=== PATIENT | female | born 1980 | race Caucasian/White ===

== ENCOUNTER 2024-03-07 09:27 | Emergency (ER) | payer OTHER, SELFPAY ==
[2024-03-07] MEDS: ONDANSETRON ODT 4 MG TABRAP PO (09:50)
[2024-03-07] MEDS: ACETAMINOPHEN 500 MG TABLET 1000 MG PO (09:50)
[2024-03-07 10:02] VITALS: BP 152/86; PULSE 120; RESP 18; TEMP 37.9; O2SAT 96; BMI 38.4
--- NOTE | 2024-03-07 10:27 | XR_ITS ---
Examination: PA lateral chest 2 views TECHNIQUE: Upright PA lateral chest 2 views Exam date and time: March 07, 2024 1039 hours INDICATIONS: Coughing beginning 4 days ago. FINDINGS: Normal heart size The lungs are clear. The osseous structures are intact IMPRESSION: No active disease
--- NOTE | 2024-03-07 10:27 | PD.EDRME ---
Rapid Medical Screening Exam RME Arrival date/time: 03/07/24 09:27 43-year-old female with medical history significant for valley fever presents emergency department complains of generalized bodyaches, fever, lower back pain Chief Complaint: Flu Like Symptoms Time Seen by Provider: 03/07/24 09:29 Vital signs: Vital Signs Temperature 100.2 F 03/07/24 10:02 Pulse Rate 120 H 03/07/24 10:02 Respiratory Rate 18 03/07/24 10:02 Blood Pressure 152/86 H 03/07/24 10:02 Pulse Oximetry (%) 96 03/07/24 10:02 Oxygen Delivery Method Room Air 03/07/24 10:02
[2024-03-07 10:52] LABS: Basophils % (Auto) 1 % (0-2.5); Eosinophils % (Auto) 0 % (0-10); Hematocrit 43.7 % (36.0-46.0); Hemoglobin 14.9 g/dL (12.0-16.0); Immature Granulocytes % (Auto) 0 % (0-0); Immature Granulocytes Auto 0.01 Thou/mm3 (0.00-0.00); Lymphocytes # (Auto) 1.4 Thou/mm3 (1.0-4.8); Lymphocytes % (Auto) 32 % (10-50); Mean Corpuscular HGB Conc 34.1 g/dl (31.0-37.0); Mean Corpuscular Hemoglobin 29.9 pg (25.0-35.0); Mean Corpuscular Volume 88 fL (80-100); Monocytes # (Auto) 0.4 Thou/mm3 (0.0-0.8); Monocytes % (Auto) 10 % (0-12); Neutrophils # (Auto) 2.5 Thou/mm3 (1.8-7.7); Neutrophils % (Auto) 57 % (37-80); Nucleated Red Blood Cell % 0 /100 WBC (0); Platelet Count 238 Thou/mm3 (140-440); RDW Standard Deviation 42.1 fL (36.4-46.3); Red Blood Count 4.98 Miln/mm3 (4.00-5.20); White Blood Count 4.4 Thou/mm3 (3.6-11.0)
[2024-03-07 11:29] LABS: Alanine Aminotransferase 46 U/L (10-49); Albumin, Serum 4.5 gm/dL (3.5-5.0); Albumin/Globulin Ratio 1.3 (1.2-2.2); Alkaline Phosphatase 65 U/L (46-116); Anion Gap 8 (7-16); Aspartate Amino Transferase 36 U/L (0-34); BUN/Creatinine Ratio 10 Ratio (12-20); Bilirubin,Total 0.3 mg/dL (0.3-1.2); Blood Urea Nitrogen 8 mg/dL (9-23); Calcium 9.5 mg/dL (8.3-10.6); Calcium (Corrected) 9.5 mg/dL (8.5-10.1); Carbon Dioxide 23.7 mMol/L (20.0-31.0); Chloride 104 mMol/L (98-107); Creatinine (Component) 0.8 mg/dL (0.6-1.3); Estimated Creatinine Clearance 108.9 mL/min (>60); Globulin 3.4 gm/dL (2.3-3.5); Glucose 105 mg/dL (74-106); Osmolality,Calculated 270 (275-295); Potassium 4.1 mMol/L (3.4-5.1); Procalcitonin 0.29 ng/ml (0.0-0.49); Sodium 136 mMol/L (136-145); Total Protein 7.9 gm/dL (5.7-8.2); eGFR > 60 See Note
[2024-03-07 13:43] LABS: Collection Type, Urine Clean Catch
[2024-03-07 14:02] LABS: Bacteria,Urine Rare; Bilirubin,Urine Negative (Negative); Blood,Urine 2+ (Negative); Clarity,Urine Turbid (Clear/Hazy); Color,Urine Lt-Yellow (Lt Yel-Yel); Culture Indicated,Urine Contaminated; Glucose, Urine Negative (Negative); Ketones,Urine 1+ (Negative); Leukocyte Esterase,Urine Positive (Negative); Nitrite,Urine Negative (Negative); PH,Urine 6.5 (5.0-7.0); Protein,Urine 1+ (Neg - Trace); RBC,Urine 4 /hpf (0-3); Specific Gravity,Urine 1.016 (1.001-1.035); Squamous Epithelial Cell,Urine 12 /hpf (0-5); Urobilinogen,Urine Negative mg/dL (0.0-1.0); WBC,Urine 70 /hpf (0-5)
--- NOTE | 2024-03-07 14:27 | EDNOTE_ITS ---
ED General RME/HPI General Chief complaint: Flu Like Symptoms Stated complaint: BODYACHES, CAN'T DRINK, FEVERS, SORE THROAT X4 DAY Time Seen by Provider: 03/07/24 09:29 Arrival date/time: 03/07/24 09:27 43-year-old female with medical history significant for valley fever presents emergency department complains of generalized bodyaches, fever, lower back pain Limitations: no limitations RME / HPI RME / HPI narrative: 03/07/24 09:27 43-year-old female with medical history significant for valley fever presents emergency department complains of generalized bodyaches, fever, lower back pain Related Data Home Medications ?Medication ?Instructions ?Recorded ?Confirmed benzonatate 100 mg capsule 100 mg PO TID PRN Cough 07/30/19 hydroxyzine HCl 25 mg tablet 1 - 2 mg PO Q8H PRN Itchi ng 07/26/19 07/30/19 loratadine 10 mg tablet 10 mg PO QDAY 07/26/1907/29 promethazine-DM 6.25 mg-15 mg/5 mL 5 ml PO Q6H PRN Cou gh 07/26/19 07/30/19 oral syrup Previous Rx's ?Medication ?Instructions ?Recorded doxycycline hyclate 100 mg capsule 100 mg PO BID #10 c aps 07/26/19 diazepam 10 mg tablet (Valium) 10 mg PO BID PRN muscle spasm #20 07/30/19 tabs ciprofloxacin HCl 500 mg tablet 500 mg PO BID 7 days # 14 tabs 03/07/24 ibuprofen 800 mg tablet 800 mg PO TID PRN pain #30 t abs 03/07/24 ondansetron 4 mg disintegrating 4 mg PO Q8H PRN nausea and 03/07/24 tablet vomiting #10 tabs Allergies Allergy/AdvReac Type Severity Reaction Status Date / Time No Known Allergies Allergy Verified 03/07/24 09:28 Review of Systems Review of Systems Systems Reviewed: All systems reviewed, normal except as documented Constitutional Constitutional: Reports system reviewed and no additional complaints, except as documented, Reports body ache(s), Reports chills, Reports fatigue, Reports fever(s) and Reports headache(s) Eyes Eyes: Reports system reviewed and no additional complaints, except as documented and Denies blurry vision ENT Ears, Nose, Mouth, and Throat: Reports system reviewed and no additional complaints, except as documented, Reports headache(s), Reports nasal congestion, Reports nasal discharge and Reports sore throat Cardiovascular Cardiovascular: Reports system reviewed and no additional complaints, except as documented, Denies chest pain and Reports dyspnea Respiratory Respiratory: Reports system reviewed and no additional complaints, except as documented, Reports chest congestion, Reports cough and Reports dyspnea Gastrointestinal Gastrointestinal: Reports system reviewed and no additional complaints, except as documented and Denies abdominal pain Integumentary/Breasts Skin/Breast: Reports system reviewed and no additional complaints, except as documented and Denies rash Neurologic Neurologic: Reports system reviewed and no additional complaints, except as documented, Reports as per HPI and Reports headache(s) Endocrine Endocrine: Reports fatigue Past Medical History Past Medical History NEUROLOGIC: Negative Neurological Disorders CARDIAC: Negative Cardiac Disorders or Congestive Heart Failure RESPIRATORY: Positive Asthma; Negative Chronic Obstructive Pulmonary Disease (COPD) GASTROINTESTINAL: Positive Gastrointestinal Disorders and Gall Bladder Disease GENITOURINARY: Negative Genitourinary Disorders or Renal Disease REPRODUCTIVE: Positive Previous Pregnancies MUSCULOSKELETAL: Negative Musculoskeletal Disorders ENDOCRINE: Negative Endocrine Disorders, Diabetes Mellitus Type 1 or Diabetes Mellitus Type 2 HEMATOLOGIC: Negative Blood Disorders OTHER HISTORY: Negative Autoimmune Disease Family History FAMILY HISTORY: Positive Family Psychiatric Problems, Family Cardiac Disorders and Family Surgery Surgical History SURGICAL: Positive Tubal Ligation and Section Social History SMOKING STATUS: Never smoker SUBSTANCE USE: marijuana ED Exam General Limitations: Present no limitations General appearance: Present alert and in no apparent distress Head Head exam: Present atraumatic Eye Eye exam: Present normal appearance, PERRL and EOMI ENT ENT exam: Present normal exam, normal oropharynx and mucous membranes moist Neck Neck exam: Present normal inspection, full ROM and trachea midline Chest Chest inspection: Present normal inspection and symmetric chest wall rise Respiratory Respiratory exam: Present normal lung sounds bilaterally Cardiovascular Cardiovascular exam: Present regular rate, normal rhythm and normal heart sounds Abdominal Exam Abdominal exam: Present soft and normal bowel sounds Extremities Exam Extremities exam: Present normal inspection and full ROM Back Exam Back exam: Present normal inspection and full ROM Neurological Exam Neurological exam: Present alert, oriented X3 and CN II-XII intact Psychiatric Psychiatric exam: Present normal affect and normal mood Skin Skin exam: Present warm, dry, intact and normal color Course Quality Measures none Orders Category Date Time Status Bedside Influenza A&B Antigen Test NOW Care 03/07/24 09:43 Completed XR chest 2V Stat Exams 03/07/24 10:27 Completed Blood Culture (Lab) Stat Lab 03/07/24 10:34 Results CBC Stat Lab 03/07/24 10:39 Completed Comprehensive Metabolic Panel Stat Lab 03/07/24 10:39 Completed Lactate (Lactic Acid) Stat Lab 03/07/24 10:39 Completed Procalcitonin Stat Lab 03/07/24 10:39 Completed UA, C/S IF [Urinalysis, C/S if Indicated] Stat Lab 03/07/24 13:18 Completed Acetaminophen Tab [Tylenol ES Tab] Med 03/07/24 09:43 Discontinued 1,000 mg PO X1 ONE Ondansetron Odt [Zofran Odt] Med 03/07/24 09:43 Discontinued 4 mg PO X1 ONE Vital Signs Vital signs: Vital Signs Temperature 100.2 F 03/07/24 10:02 Pulse Rate 120 H 03/07/24 10:02 Respiratory Rate 18 03/07/24 10:02 Blood Pressure 152/86 H 03/07/24 10:02 Pulse Oximetry (%) 96 03/07/24 10:02 Oxygen Delivery Method Room Air 03/07/24 10:02 O2 saturation 96% room air within normal limits [facility] Patient data External records reviewed:: [facility] previous records Clinical information provided by:: patient Social determinants that could affect healthcare access:: none Patient has the following chronic illnesses:: See history How is presenting disease/condition affected by chronic disease/condition?: u neffected by Evaluation data The following diagnostics were reviewed and interpreted by me:: lab results and radiology exam(s) Lab and/or radiology exams considered but not ordered:: Labs radiology obtain Interpretation Summary: Reviewed by me Medications Medications considered but not ordered:: Given Medication administrations:: Medication Administration History Discontinued Medications Acetaminophen (Acetaminophen 500 Mg Tablet) 1,000 mg PO X1 ONE Stop: 03/07/24 09:44 Last Admin: 03/07/24 09:50 Dose: 1,000 mg Documented By: RUTH ANN Ondansetron HCl (Ondansetron Odt 4 Mg Tabrap) 4 mg PO X1 ONE; Protocol Stop: 03/07/24 09:44 Last Admin: 03/07/24 09:50 Dose: 4 mg Documented By: RUTH ANN Given Consultations Consultation(s) initiated? (list below): No Diagnosis Differential Diagnosis ED Complaint MDM: UTI, URI, viral illness, influenza Most likely diagnosis given after review of the tests above:: URI Admission Indicated Admission indicated?: not indicated Explain why admission is indicated or not indicated:: No criteria Admission Request Was there a request for admission?: No Disposition Plan Disposition Plan: Discharge Discharge Attestation Discharge Attestation: The patient and all family members were given an opportunity to ask questions and understood the discharge instructions. Discharge instructions specifically effects, indications for sooner follow up or return to the emergency department, and the expected course of current diagnosis. Patient condition: Stable Medical Decision Making MDM Narrative MDM Narrative: 43-year-old female with medical history significant for valley fever presents emergency department complains of generalized bodyaches, fever, lower back pain On exam hemodynamically stable patient does not appear ill or toxic Lab work chest x-ray obtained swabs obtained No acute emergent findings noted patient's urinalysis consistent with UTI Patient discharged home in no distress to follow-up with primary care doctor in the next 24 to 48 hours and for any worsening symptoms to return to the ER immediately Differential Diagnosis Differential Diagnosis: UTI, URI, viral illness, influenza Medical Records Medical records reviewed: Yes I reviewed the patient's medical records. Lab Data Lab results reviewed: Yes I reviewed the patient's lab results. 03/07/24 10:39 03/07/24 10:39 Labs: Lab Results 03/07/24 03/07/24 Range/Units 10:39 13:18 WBC 4.4 (3.6-11.0) Thou/mm3 RBC 4.98 (4.00-5.20) Miln/mm3 Hgb 14.9 (12.0-16.0) g/dL Hct 43.7 (36.0-46.0) % MCV 88 (80-100) fL MCH 29.9 (25.0-35.0) pg MCHC 34.1 (31.0-37.0) g/dl RDW Std Deviation 42.1 (36.4-46.3) fL Plt Count 238 (140-440) Thou/mm3 Neut % (Auto) 57 (37-80) % Lymph % (Auto) 32 (10-50) % Sac % (Auto) 10 (0-12) % Eos % (Auto) 0 (0-10) % Baso % (Auto) 1 (0-2.5) % Neut # (Auto) 2.5 (1.8-7.7) Thou/mm3 Lymph # (Auto) 1.4 (1.0-4.8) Thou/mm3 Sac # (Auto) 0.4 (0.0-0.8) Thou/mm3 Eos # (Auto) 0.0 (0.0-0.5) Thou/mm3 Baso # (Auto) 0.0 (0.0-0.2) Thou/mm3 Immature Gran # (Auto) 0.01 H (0.00-0.00) Thou/mm3 Absolute Nucleated RBC 0.00 (0.00-0.00) Thou/mm3 Immature Gran % 0 (0-0) % Nucleated RBC % 0 (0) /100 WBC Sodium 136 (136-145) mMol/L Potassium 4.1 (3.4-5.1) mMol/L Chloride 104 (98-107) mMol/L Carbon Dioxide 23.7 (20.0-31.0) mMol/L Anion Gap 8 (7-16) BUN 8 L (9-23) mg/dL Creatinine 0.8 (0.6-1.3) mg/dL Estim Creat Clear Calc 108.9 (>60) mL/min eGFR > 60 (60 - ) See Note BUN/Creatinine Ratio 10 L (12-20) Ratio Glucose 105 (74-106) mg/dL Calculated Osmolality 270 L (275-295) Lactic Acid 1.0 (0.4-2.0) mMol/L Calcium 9.5 (8.3-10.6) mg/dL Corrected Calcium 9.5 (8.5-10.1) mg/dL Total Bilirubin 0.3 (0.3-1.2) mg/dL AST 36 H (0-34) U/L ALT 46 (10-49) U/L Alkaline Phosphatase 65 (46-116) U/L Total Protein 7.9 (5.7-8.2) gm/dL Albumin 4.5 (3.5-5.0) gm/dL Globulin 3.4 (2.3-3.5) gm/dL Albumin/Globulin Ratio 1.3 (1.2-2.2) Procalcitonin 0.29 (0.0-0.49) ng/ml Ur Collection Type Clean Catch Urine Color Lt-Yellow (Lt Yel-Yel) Urine Clarity Turbid A (Clear/Hazy) Urine pH 6.5 (5.0-7.0) Ur Specific [place] 1.016 (1.001-1.035) Urine Protein 1+ A (Neg - Trace) Urine Glucose (UA) Negative (Negative) Urine Ketones 1+ A (Negative) Urine Blood 2+ A (Negative) Urine Nitrite Negative (Negative) Urine Bilirubin Negative (Negative) Urine Urobilinogen (Auto) Negative (0.0-1.0) mg/dL Ur Leukocyte Esterase Positive (Negative) Urine RBC 4 H (0-3) /hpf Urine WBC 70 H (0-5) /hpf Ur Squamous Epith Cells 12 H (0-5) /hpf Urine Bacteria Rare (None) Ur Culture Indicated? Contaminated Radiology Data Radiology results reviewed: Yes I reviewed the patient's radiology results. Discharge Plan Plan Patient Disposition: HOME (Self Care) Disposition Comment: Stable Prescriptions/Referrals Prescriptions/Med Rec: New ibuprofen 800 mg tablet 800 mg PO TID PRN (Reason: pain) Qty: 30 0RF ciprofloxacin HCl 500 mg tablet 500 mg PO BID 7 Days Qty: 14 0RF ondansetron 4 mg tablet,disintegrating 4 mg PO Q8H PRN (Reason: nausea and vomiting) Qty: 10 0RF No Action promethazine-DM 6.25-15 mg/5 mL syrup 5 ml PO Q6H PRN (Reason: Cough) Patient Comments: TAKE 5 ML BY MOUTH EVERY 6 HOURS NEEDED FOR 10 DAYS benzonatate 100 mg capsule 100 mg PO TID PRN (Reason: Cough) Patient Comments: TAKE 1 CAPSULE BY MOUTH THREE TIMES DAILY NEEDED FOR 7 DAYS hydroxyzine HCl 25 mg tablet 1 - 2 mg PO Q8H PRN (Reason: Itching) Patient Comments: TAKE 1 TO 2 TABLETS BY MOUTH EVERY 8 HOURS NEEDED FOR RASH AND FORITCHING FOR 10 DAYS loratadine 10 mg tablet 10 mg PO QDAY Patient Comments: TAKE 1 TABLET BY MOUTH ONCE DAILY FOR 14 DAYS doxycycline hyclate 100 mg capsule 100 mg PO BID Qty: 10 0RF diazepam [Valium] 10 mg tablet 10 mg PO BID PRN (Reason: muscle spasm) Qty: 20 0RF Problem List Clinical Impression: UTI (urinary tract infection), Fever Patient/Caregiver Discharge Instructions Additional Instructions: Please follow up with your primary care doctor in the next 24-48hrs for any worsening symptoms return here immediately Print Language: Armenian Stand Alone Forms: Bertha Award Info., Work/School Release, Patient Portal Info Letter PA/MEMORY CARE PROGRAM DIRECTOR Supervising Physician PA/MEMORY CARE PROGRAM DIRECTOR Supervising Physician: Dr. Johnson
== END 2024-03-07 16:00 | disposition home or self-care (01) ==
LOC: SERX 16:17
PROVIDERS: Nurse Practitioner Primary Care; Emergency Provider Emergency Medicine
DX: N39.0 Urinary tract infection, site not specified (principal); R05.9 Cough, unspecified
CPT/HCPCS: 36415; 71046; 80053; 81001; 83605; 84145; 85025; 87040; 87077; 87186; 87400; 99283; Q0162; A9270